=== PATIENT | male | born 1980 | race Caucasian/White ===

== ENCOUNTER 2024-07-21 09:44 | Outpatient (OUT) | payer SELFPAY ==
--- NOTE | 2024-07-21 09:46 | XR_ITS ---
The [address] [address] Patient Name: MAGDA POLANCO MRN: [id number] date: 1980 Sex: M Assigned Patient Location: [facility] Current Patient Location: Accession/Order Number: [id number] Exam Date: 07/21/2024 09:52 Report Date: 07/24/2024 07:34 At the request of: SWATHI FRANCO Procedure: XR foot RT min 3V PROCEDURE: XR foot RT min 3V HISTORY: Pain COMPARISON: XR foot right 09/04/2022 FINDINGS: BONES:Prior osteotomy and fusion of mid first metatarsal via dorsal plate and screws. Mechanical fusion of the talonavicular joints and prior posterior calcaneal osteotomy and fusion via 2 lag screws. SOFT TISSUES:No visible soft tissue swelling. EFFUSION:None visible. OTHER: Negative. XR/XR foot RT min 3V IMPRESSION: 1. Stable surgical changes without evidence of hardware failure or change in alignment. Electronically authenticated by: SJ MAHAN Date: 07/24/2024 07:34
== END 2024-07-21 09:45 | disposition home or self-care (01) ==
LOC: RAD 09:44
PROVIDERS: Visit Provider Podiatrist Foot & Ankle Surgery
DX: M79.671 Pain in right foot (principal)
CPT/HCPCS: 73630

== ENCOUNTER 2024-08-11 09:23 | Outpatient (OUT) | payer MEDICAID, SELFPAY ==
--- OUTSIDE RECORDS SUMMARY | 2024-08-11 09:35 | XMS_ITS | CCD ---
Author Organization [facility] Inform ion Partnership [facility] Care Team Providers Care Substation Inspector Name Role Phone SWATHI FRANCO Admitting Unavailable SWATHI FRANCO Attending Unavailable JIL JOHNSON Primary Care Unavailable [place], DR GUERRERO Holguin Consulting Unavailable SWATHI FRANCO Consulting Unavailable [facility] Primary Care Provider Unavailabl e [facility] ([facility] [place] Other Prim ashlie Care Provider [facility] ([facility]), OTHER Prim ashlie Care Unavailable [facility] ([facility]), OTHER Refe rring Unavailable [facility] Attending Unavailable SELF, SELF Referring Unavailable [facility] Attending Unavailable [facility] ([facility]), OTHER Refe rring Unavailable [facility] Attending Unavailable [facility] ([facility]), OTHER Refe rring Unavailable ATWAY, SAID A Admitting Unavailable ATWAY, SAID A Attending Unavailable Medications Current Medications Medication Drug Class(es) Dates Sig (Normalized) Sig (Original) 8 hr acetaminophen 650 mg extended release oral tablet (3 sources) Start: 07-07-2023 End: 07-12-2023 take 1 tablet by mouth every six hours as needed acetaminophen 650 MG Tab CR Take 1 tablet by mouth every 6 hours as needed for Mild Pain or Moderate Pain for up to 5 days. 20 tablet 0 07/07/2023 Active Start: 07-07-2023 End: 07-07-2023 take 1 tablet by mouth every six hours as needed Acetaminophen (TYLENOL) tablet 650 mg docusate sodium 100 mg oral capsule (2 sources) Start: 07-07-2023 take 1 capsule by mouth twice daily as needed for pain Docusate 100 MG capsule Take 1 capsule by mouth 2 times daily as needed. Take for the entire time you are taking any narcotic pain medication. 30 capsule 1 07/07/2023 Active doxycycline hyclate 100 mg oral capsule (1 source) Tetracycline-cl ass Drug Start: 07-07-2023 End: 07-21-2023 take 1 capsule by mouth twice daily doxycycline hyclate 100 MG capsule Take 1 capsule by mouth 2 times daily for 14 days. 28 capsule 0 07/07/2023 07/21/2023 Active oxyCODONE hydrochloride 5 mg oral tablet (3 sources) Opioid Agonist Start: 07-07-2023 End: 07-12-2023 take 1 tablet by mouth every six hours as needed oxyCODONE 5 MG tablet Indications: S/P foot surgery, right Take 1 tablet by mouth every 6 hours as needed for up to 5 days. 20 tablet 0 07/07/2023 Active Completed/Discontinued Medications Medication Drug Class(es) Dates Sig (Normalized) Sig (Original) calcium chloride 0.0014 meq/ml / potassium chloride 0.004 meq/ml / sodium chloride 0.103 meq/ml / sodium lactate 0.028 meq/ml injectable solution (1 source) Start: 3 End: 3 Lactated ringers IV solution ceFAZolin 2000 mg injection (2 sources) Cephalosporin Antibacterial Start: 3 End: 3 ceFAZolin (ANCEF) 2 g in dextrose 100 mL premix IVPB 1 ml haloperidol 5 mg/ml prefilled syringe (2 sources) Typical Antipsychotic Start: 3 End: 3 Haloperidol lactate (HALDOL) injection 1 mg 1 ml HYDROmorphone hydrochloride 1 mg/ml cartridge (2 sources) Opioid Agonist Start: 3 End: 3 HYDROmorphone (DILAUDID) injection 0.5 mg ibuprofen 200 mg oral tablet (1 source) Nonsteroidal Anti-inflammatory Drug Start: 3 End: 3 take 1 tablet by mouth every six hours as needed Ibuprofen (MOTRIN) tablet 600 mg labetalol hydrochloride 5 mg/ml injectable solution (1 source) beta-Adrenergic Kimmy Start: 3 End: 3 Labetalol (NORMODYNE) injection 5 mg 2 ml ondansetron 2 mg/ml injection (1 source) Serotonin-3 Receptor Antagonist Start: 3 End: 3 take 4 mg intravenously every four hours as needed Ondansetron 4mg/2ml (ZOFRAN) injection 4 mg prochlorperazine 5 mg/ml injectable solution (2 sources) Phenothiazine Start: 3 End: 3 take 5 mg intravenously every hour as needed Prochlorperazine (COMPAZINE) injection 5 mg Problems Problem Classification Problem Date Documented Date Episodic/Chronic Acquired foot deformities (4 sources) Toe joint rigid; Translations: [Hallux rigidus, right foot] Onset: 05-19-2023 06-19-2023 Chronic Acquired foot deformities (8 sources) Plantarflexion deformity of foot; Translations: [Other acquired deformities of unspecified foot] Onset: 05-19-2023 06-19-2023 Episodic Complication of device; implant or graft (6 sources) Pain; Translations: [Pain due to internal orthopedic prosthetic devices, implants and grafts, initial encounter] Onset: 07-28-2023 06-19-2023 Episodic Other connective tissue disease (4 sources) Pain in right foot; Translations: [PAIN IN RIGHT FOOT] Onset: 09-04-2022 Episodic Other injuries and conditions due to external causes (1 source) Foreign body in left ear; Translations: [Foreign body in left ear, initial encounter] Onset: 10-02-2022 Episodic Other nervous system disorders (2 sources) Compartment syndrome of lower leg 10-01-2022 Chronic Other skin disorders (2 sources) Foot callus; Translations: [Corns and callosities] 06-19-2023 Episodic Other skin disorders (2 sources) Corns and callosities; Translations: [Corns and callosities] Onset: 05-19-2023 Episodic Residual codes; unclassified (3 sources) History of operative procedure on foot; Translations: [Other specified postprocedural states] Onset: 07-29-2023 07-07-2023 Episodic Residual codes; unclassified (2 sources) Other specified postprocedural states; Translations: [Other specified postprocedural states] Onset: 07-28-2023 Episodic Skin and subcutaneous tissue infections (2 sources) Local infection of the skin and subcutaneous tissue, unspecified; Translations: [Local infection of the skin and subcutaneous tissue, unspecified] Onset: 07-28-2023 Episodic Superficial injury; contusion (5 sources) Foreign body of foot; Translations: [Superficial foreign body, right great toe, initial encounter] Onset: 07-28-2023 04-30-2023 Episodic Results Test Name Value Interpretation Reference Range Facil ity [facility] 10-21-2023 Prison Documents [id number] FF Normal [facility] CARDIAC RHYTHM (SCANNED)on [facility] 04-03-2023 Prison Documents [id number] 0CD:127 Normal [facility] Vital Signs Date Time Vital Sign Value Performing Clinician [place] 07-07-2023 13:01-0400 Diastolic blood pressure 86 mm[Hg] Said Atway DPM Work Phone: [facility] 07-07-2023 13:01-0400 Heart rate 72 /min Said Atway DPM Work Phone: [facility] 07-07-2023 13:01-0400 Respiratory rate 14 /min Said Atway DPM Work Phone: [facility] 07-07-2023 13:01-0400 SaO2% (BldA) [Mass fraction] 96 % Said Atway DPM Work Phone: [facility] 07-07-2023 13:01-0400 Systolic blood pressure 135 mm[Hg] Said Atway DPM Work Phone: [facility] 07-07-2023 12:15-0400 Body temperature 98.01 [degF] Said Atway DPM Work Phone: [facility] 07-07-2023 07:54-0400 Body height 177.8 cm Said Atway DPM Work Phone: [facility] 10-02-2022 15:40-0500 Body temperature 98.6 [degF] Ceasar MURRAY [facility] 10-02-2022 15:40-0500 Diastolic blood pressure 98 mm[Hg] Ceasar MURRAY [facility] 10-02-2022 15:40-0500 Heart rate 69 /min Ceasar MURRAY [facility] 10-02-2022 15:40-0500 Mean blood pressure 111 mm[Hg] Ceasar MURRAY [facility] 10-02-2022 15:40-0500 SaO2% (BldA) [Mass fraction] 97 % Ceasar MURRAY [facility] 10-02-2022 15:40-0500 Systolic blood pressure 136 mm[Hg] Ceasar MURRAY [facility] 10-01-2022 15:29-0500 Blood Pressure Location Ceasar MURRAY [facility] 10-01-2022 15:29-0500 Body temperature 98.42 [degF] Ceasar MURRAY [facility] 10-01-2022 15:29-0500 Diastolic blood pressure 80 mm[Hg] Ceasar MURRAY [facility] 10-01-2022 15:29-0500 Heart rate 90 /min Ceasar MURRAY [facility] 10-01-2022 15:29-0500 Respiratory rate 14 /min Ceasar MURRAY [facility] 10-01-2022 15:29-0500 SaO2% (BldA) [Mass fraction] 94 % Ceasar MURRAY [facility] 10-01-2022 15:29-0500 Systolic blood pressure 117 mm[Hg] Ceasar MURRAY [facility] Encounters Encounter Date Encounter Type Care Provider Facility Start: 07-28-2023 ambulatory [facility] ([facility]) Facility:[facility] Start: 07-28-2023 End: 07-28-2023 Postop follow up visit related to original px [facility] [place] Work Phone: [facility] Comment on above: S/P foot surgery, ri ght (Primary Dx); Painful orthopaedic hardware; Foreign body of great toe of right foot with infection, initial encounter Start: 07-07-2023 End: 07-07-2023 ambulatory [facility] ([facility]) Facility:[facility] Start: 07-07-2023 End: 07-07-2023 Subsequent hospital visit by physician Saritha García DPM Work Phone: [facility] Comment on above: Equinus deformity of foot Start: 05-19-2023 ambulatory SELF SELF Facility:[facility] Start: 05-19-2023 End: 06-24-2023 Office outpatient new 45 minutes [facility] [place] Work Phone: [facility] Comment on above: Equinus deformity of foot (Primary Dx); Cavovarus deformity of foot, acquired, right; Callus of foot; Hallux rigidus of right foot; Painful orthopaedic hardware Start: 04-30-2023 End: 04-30-2023 Office outpatient new 30 minutes [facility] [place] Work Phone: [facility] Comment on above: Foreign body of grea t toe of right foot with infection, initial encounter (Primary Dx) Start: 04-30-2023 ambulatory [facility] ([facility]) Facility:[facility] Start: 10-02-2022 End: 10-02-2022 Off-Site Ceasar MURRAY [facility] Start: 10-01-2022 End: 10-01-2022 Off-Site Ceasar MURRAY [facility] Start: 09-04-2022 End: 09-05-2022 ambulatory SWATHI FRANCO Facility:[facility] Procedures Date Procedure Procedure Detail Performing Clinician Start: 07-07-2023 CARDIAC RHYTHM Other Ot her Plan of Treatment Date Care Activity Detail Author Start: 07-07-2023 End: 07-07-2023 Debridement bone muscle &/fascia 20 sq cm/< DEBRIDEMENT BONE Equinus deformity of foot Cavovarus deformity of foot, acquired, right Callus of foot Hallux rigidus of right foot Painful orthopaedic hardware 07/07/2023 10:11 AM EDT [facility] Start: 07-07-2023 End: 07-07-2023 Removal implant superficial separate procedure REMOVAL HARDWARE Equinus deformity of foot Cavovarus deformity of foot, acquired, right Callus of foot Hallux rigidus of right foot Painful orthopaedic hardware 07/07/2023 10:11 AM EDT [facility] Start: 05-09-2023 Influenza vaccination INFLUENZA VACC INE (#1) [facility] Start: 2019 Lipid panel LIPID SCREENING [facility] Start: 1998 Third diphtheria, tetanus and acellular pertussis (DTaP) vaccination TDAP (ADULT) [facility] Start: 1994 HIV screening HIV SCREENING DISCUSSI ON [facility] Start: 02-29-1980 COVID-19 VACCINE (#1) COVID-19 VACCI NE (#1) [facility] Start: 1979 Hepatitis C screening HEPATITI S C VIRUS SCREENING [facility] Start: 1979 Tetanus vaccination TETANUS [facility] Debridement bone mus brayan &/fascia 20 sq cm/< DEBRIDEMENT BONE Equinus deformity of foot Cavovarus deformity of foot, acquired, right Callus of foot Hallux rigidus of right foot Painful orthopaedic hardware [facility] REMOVAL HARDWARE REMOVAL HARDWAR E Equinus deformity of foot Cavovarus deformity of foot, acquired, right Callus of foot Hallux rigidus of right foot Painful orthopaedic hardware [facility] End: 07-07-2023 RF Less than 1 hour [facility] Work Phone: Comment on above: One Time for 1 Occur rences starting 07/07/2023 until 07/07/2023 Immunizations Immunization Date Immunization Notes Care Provider Jules lao 10-01-2019 hepatitis A vaccine, adult dosage Ceasar MURRAY [facility] Payers Date Payer Category Payer Unknown [facility] [id number] 2023-Present [address] [place] [address] [id number] 2023 Unknown [id number] 1979 Unknown [id number] 1979 Unknown [id number] 1979 Unknown [id number] 1979 Unknown [id number] 1959 Unknown [id number] Social History Date Type Detail Facility Start: 10-01-2022 Tobacco smoking status Heavy t obacco smoker (finding) [facility] Sex Assigned At Sex [facility] Tobacco smoking stat [facility] Tobacco smoking consumption unknown [facility] Start: 12-23-2014 End: 07-28-2023 History of Social function [facility] Start: 12-23-2014 End: 07-28-2023 Tobacco use panel [facility] Start: 1980 Sex Assigned At Not on file [facility] Start: 07-07-2023 [facility] End: 08-12-2022 History of tobacco use Current smoker [facility] End: 08-12-2022 History of tobacco use Cigarette Smoker [facility] Start: 07-07-2023 Tobacco use and exposure Former smokeless tobacco user [facility] End: 01-05-2020 History of tobacco use User of smokeless tobacco [facility] Start: 07-07-2023 End: 07-28-2023 Alcohol intake Ex-drinker (finding) [facility] Start: 07-07-2023 Education 17 [facility] Start: 07-07-2023 Alcohol Comment etoh abuse [facility] Functional Status Date Assessment Result Facility 10-01-2022 Functional Status N/A [facility] Clinical Notes 09-04-2022 to 07-28-2023 Kay Nice MD - 07/28/2023 9:45 AM Baldemar Mccormick RN - 07/07/2023 11:19 AM Marco Antonio Mccormick RN - 07/07/2023 11:19 AM EDTSmarcela García DPM - 05/19/2023 9:00 AM EDT Note Date & Type Note Facility 07-28-2023 History of Presen t illness Narrative Chief Complaint Patient presents with Post Op Visit Right great toenail removal per podiatry This telehealth visit is a real time audio/visual communication. During the scheduling process, this patient has verbally consented to the submission of Telehealth visits and the patient is aware of the risks, benefits, and possible coinsurance/copay costs. This visit is being conducted by real time telemedicine due to the current COVID19 pandemic and efforts to reduce in-clinic visits, where possible, to reduce the overall risk of the spread of the illness. Time to complete visit: 15+ Minutes. and format: video Wily Polanco is a 42 y.o. year old male who is here for follow up on surgery as below. Wily Polanco c/o pain is improved and pain is controlled with pain medication HPI: 42 y.o. male status post above procedure Overall the patient is doing well at this time. his pain is well controlled with oral pain medications. he is ambulating weight bearing status: FWB with the assistance of:Mobility : post op shoe PSxH: Past Surgical History: Procedure Laterality Date REMOVAL HARDWARE Right 07/07/2023 Laterality: Right; Surgeon: Said Manjula García DPM; Location: [facility] DEBRIDEMENT BONE Right 07/07/2023 Laterality: Right; Surgeon: Said Manjula García DPM; Location: [facility] FOOT SURGERY Right 2020 LEG SURGERY Right 2000 TONSILLECTOMY 1985 WISDOM TEETH EXTRACTION Bilateral PMH: Past Medical History: Diagnosis Date Essential hypertension, benign Hyperlipidemia Meds: Current Outpatient Medications: acetaminophen 650 MG Tab CR, Take 1 tablet by mouth every 6 hours as needed for Mild Pain or Moderate Pain for up to 5 days., Disp: 20 tablet, Rfl: 0 Docusate 100 MG capsule, Take 1 capsule by mouth 2 times daily as needed. Take for the entire time you are taking any narcotic pain medication., Disp: 30 capsule, Rfl: 1 oxyCODONE 5 MG tablet, Take 1 tablet by mouth every 6 hours as needed for up to 5 days., Disp: 20 tablet, Rfl: 0 Allergies: Not on File Social History: Social History Socioeconomic History Marital status: Single Spouse name: Not on file Number of children: 0 Years of education: Not on file Highest education level: Bachelor's degree (e.g., BA, AB, BS) Occupational History Occupation: [employer] Tobacco Use Smoking status: Former Packs/day: .5 Types: Cigarettes Quit date: 08/12/2022 Years since quittin.9 Smokeless tobacco: Former Quit date: 01/05/2020 Vaping Use Vaping Use: Never used Substance and Sexual Activity Alcohol use: Not Currently Comment: etoh abuse Drug use: Not Currently Types: Methamphetamines, Cocaine Sexual activity: Not Currently Other Topics Concern Not on file Social History Narrative Not on file Social Determinants of Health Financial Resource Strain: Not on file Food Insecurity: Not on file Transportation Needs: Not on file Physical Activity: Not on file Stress: Not on file Social Connections: Not on file Intimate Partner Violence: Not on file Housing Stability: Not on file ROS: @ROS@ Physical exam: A./O. x3 in no apparent distress. Positioned comfortably in in the institutional clinic space The incision is clean, dry, intact, . and nail removal area is stable There were complaints: wound drainage and minimal, some swelling associated There were no complaints: wound dehiscence, necrotic tissue, and locking/ catching ROM is: not tested-- prior fusion Vitals: There were no vitals filed for this visit. There is no height or weight on file to calculate BMI. Labs: CBC with Diff and Platelets, ESR, and CRP, please do in 2 weeks and send results to Dr. Nice at [facility] Orthopaedics. X-ray/ imaging: available on [facility] ASSESSMENT AND PLAN This is a 42 y.o. male status post overall doing well. S/p right great toeanil removal . He is having some swelling and drainage. He has completed 2 weeks doxycycline. Feels it is getting better, not having pain. Wily was seen today for post op visit. Diagnoses and all orders for this visit: S/P foot surgery, right Painful orthopaedic hardware Foreign body of great toe of right foot with infection, initial encounter Plan is for weight bearing status: FWB Weight bearing for ongoing . Wean into regular shoe as able. Follow -up: [facility] , in 4-6 weeks for: recheck, due to ongoing drainage. Imaging: Imaging plan --Please have: No new imaging is needed at this time. Surgical Plan: Surgery Plan : No surgery is currently anticipated. and patient is postop Labs: no labs needed at this time Please send routine record requests to [facility] Medical Information Management (MIRIAM) at [phone]. Please ALSO send any Urgent or alert level results to: attention [facility] OR[facility] via , as well as to [facility] as above. Rehab exercises will beper POST OP instructions per podiatry. Already reviewed these, per patient. Over 10 minutes was spent today in the care of this patient, including visit, exam, review of labs, xrays, history, and other documentation as appropriate. Kay Nice MD Clinical Him Coder [facility] Department [place] [address] Office: [phone] documented in this encounter [facility] 07-07-2023 Hospital Discharg e instructions Keaton Church DPM - 07/07/2023 11:54 AM EDT Post Operative Summary Elevate right leg on x2 pillows above level of heart Ice: Ice over incision site or behind knee for 20 min on/off Weight Bearing Status - Partial weightbearing to your right leg/foot using heel and in a post-op shoe Antibiotics - Doxy x2 weeks - take as prescribed Blood Clot Prevention - Up and out of bed as much as possible Pain Control - You have been prescribed a narcotic pain medication. Please take as prescribed. Do not take more than prescribed. Wound Care Instructions - Keep dressing clean, dry intact. Call the number below under Follow up appointment if the dressing gets wet or damaged requiring attention before attempting to remove it. Reinforce as needed with PEARL or additional bandage. Diet- Advance diet slowly as tolerated starting with clear fluids Follow Up Appointment - Ortho snf clinic for dressing changes, wound assessment and 2-3 week follow up for suture removal. Notify Your Doctor or Nurse if you have any of the following: Bleeding or bruising If you have bleeding, apply pressure to the site and hold the pressure firmly for 5 minutes. If the bleeding continues, apply pressure again and call 911. If the bleeding stopped, call your doctor to report it. Call your doctor or nurse right away if you have increased bleeding from your site. Deep Vein Thrombosis Symptoms Call your doctor or nurse right away if you have any signs of blood clots such as -Tender, swollen or reddened areas anywhere in your leg. -Numbness or tingling in your lower leg or calf, or at the top of your leg or groin -Skin on you leg looks pale or blue or feels cold to touch -Chest pain or have trouble breathing -Fever or chills Fever, Chills, or Flu Call your doctor or nurse if you have a temperature greater than 100.5 degrees F and/or chills. Nausea and Vomiting Call your doctor or nurse if you have nausea and vomiting that continues more than 24 hours, will not let you keep medicine down and will not let you keep fluids down Wound Infection Symptoms Call your doctor or nurse right away if you have signs of infection at you wound such as: -More pain around the wound -Change in the color and odor of drainage -The skin around the wound feels warm or has red streaks -The wound separates or opens up -You have a temperature greater than 100.5 Symptom Management: Take Your Medicines Take your prescribed medicines as ordered to avoid a set back in your treatment plan. Many of your medicines will cause undesirable side effects if stopped suddenly. Anesthesia Recovery after General, Monitored, or Regional Anesthesia You should rest for [address], drink alcoholic beverages or make any important decisions during this period of time. General anesthesia may cause a sore throat, jaw discomfort, or muscle aches that can last for 1 to 2 days. After Local Anesthesia You should rest and limit your activity for the rest of the day. For Nausea and Vomiting Take your medicine to reduce nausea regularly. Call your doctor if you are not able to eat or drink for more than 2 days. For Leg Swelling Elevate legs above the level of your heart. Do not cross your legs. Wear support hose. Limit time sitting. Activity: Please follow these instructions: Weight Bearing Restrictions: To promote healing or prevent injury you should restrict the amount of weight you place on your right leg and foot. Your activities should be limited, as instructed by your doctor or therapist to partial weight bearing utilizing your heel. This means you are not to put your body weight to the affected area. Diet: Your doctor has recommended that you follow these diet instructions at home. Refer to the patient education materials you received during your hospital stay. If you would like more nutrition counseling, ask your doctor about making an appointment with an outpatient dietitian. No restrictions-usual diet -You are to resume your usual diet at home. Miscellaneous Education Home Medicines-New Start taking the medicines that your doctor prescribed for you after your surgery. Your medicines were changed during your hospital stay. Review your list of medicines and only take those medicines on the list. Do not take any other medicines unless you first check with your doctor. Home Medicines-Resume Resume the medicines that you were taking at home before your hospital stay. Pain Medication A prescription for pain medicine will be sent home with you. Do not drive while taking prescription pain medicine. Eat when taking pain medicines to avoid nausea. Watch for constipation. Eat plenty of fruits, vegetables, juices, and drink 6 to 8 glasses of water each day. Take an over the counter stool softeners twice daily while taking the narcotic pain medicine to prevent constipation. Take a stool softener twice a day as long as you remain on pain medicine. If you do not have a bowel movement within 5 days of your surgery, please take milk of magnesia. If you do not have a bowel movement within 12 hours of milk of magnesia, call the office. Additional Contacts: Evening and Weekend Contacts If you have questions or concerns during evening, weekend, or holiday hours, please call: -[facility] press operator printing at [phone]. -[facility] press operator printing at [phone] Ask the press operator printing to page the on-call doctor for Podiatry, the service that was responsible for your care while you were in the hospital. If you having an emergency, call 911. documented in this encounter [facility] 07-07-2023 Nurse Surgical operation note Patient arrived to [facility] PACU @1140 1159: paged for ASU orders Dr Hannon called for sign out @1200, VO ok to discontinue tele and pulse ox for phase 2. Report called to Brittny RN @1213 Patient left PACU via cart @1216 [facility] 07-07-2023 Nurse Note Patient arrived to [facility] PACU @1140 1159: paged for ASU orders Dr Hannon called for sign out @1200, VO ok to discontinue tele and pulse ox for phase 2. Report called to Brittny RN @1213 Patient left PACU via cart @1216 Report called to PACKING SHED SUPERVISORALEXANDRIA Lycnh documented in this encounter [facility] 07-07-2023 Nurse Surgical operation note Report called to PACKING SHED SUPERVISORALEXANDRIA Lynch [facility] 05-19-2023 History of Presen t illness Narrative No chief complaint on file. Patient verbally consents to the submissions of a Telehealth visit, patient is aware of the risks, benefits, and possible coinsurance/copay cost. Johny Polanco is a 42 y.o. male presenting with complaint of previous right foot surgery which has persisted with continued pain. Relates being limited in ability to ambulate and previous surgery for the rotated foot deformity. Would like to review options for conservative vs. Surgical care. Did well originally with surgery and now continued deformity and ulcer. Pt. Denies nausea, vomiting, fever, chills and shortness of breath. No past medical history on file. No past surgical history on file. Social History Occupational History Not on file Tobacco Use Smoking status: Not on file Smokeless tobacco: Not on file Substance and Sexual Activity Alcohol use: Not on file Drug use: Not on file Sexual activity: Not on file No family history on file. No current outpatient medications on file. Not on File Review of Systems: Constitutional: Negative. Negative for fever, chills, weight loss, weight gain and malaise/fatigue. Skin: Negative. Negative for rash, itching and skin lesions. Musculoskeletal: Negative. Negative for myalgias, back pain, joint pain and falls. Neurological: Negative. Negative for dizziness and seizures. Physical Exam General:Johny Polanco is seated comfortably in the examination room. He is alert and oriented to time and place. In no acute distress. Mood and affect are normal and appropriate to situation.Johny presents well developed, well nourished male. Johny presents NWB with surgical shoe Seated at [facility]. There were no vitals taken for this visit. Skin: Normal. No abrasions, lacerations, ecchymosis noted. intact skin without open area or infection contracture with callus/ulcer incisions healed. Musculoskeletal:all joints tested WNL and muscle strength 5/5 for all groups tested. Varus heel with posterior lateral wound excess loading. Neurological:protective sensation grossly reduced. Vascular: temperature warm to warm proximal to distal and DP and PT pulses +2 bilateral. Imaging Studies: Reviewed. Diagnoses and all orders for this visit: Equinus deformity of foot Cavovarus deformity of foot, acquired, right Callus of foot Hallux rigidus of right foot Painful orthopaedic hardware Plan: On today's visit I have reviewed with the patient the diagnoses and treatment options for his lower extremity pathology. I have explained to him conservative treatment options. All of his questions were answered regarding this diagnosis. Concern with continued varus foot and lateral loading of the forefoot and midfoot with concern for hardware pain and deformity. Consider surgical intervention and hardware removal and pain. He is well versed in the signs of infection including nausea, vomiting, fever, chills and shortness of breath. As well he is aware that if he sees redness streaking up his foot or leg drainage or increased pain he should go to the emergency room immediately as this is a sign of severe infection. documented in this encounter [facility] 05-19-2023 History of Presen t illness Narrative No chief complaint on file. Patient verbally consents to the submissions of a Telehealth visit, patient is aware of the risks, benefits, and possible coinsurance/copay cost. Johny Polanco is a 42 y.o. male presenting with complaint of previous right foot surgery which has persisted with continued pain. Relates being limited in ability to ambulate and previous surgery for the rotated foot deformity. Would like to review options for conservative vs. Surgical care. Did well originally with surgery and now continued deformity and ulcer. Pt. Denies nausea, vomiting, fever, chills and shortness of breath. No past medical history on file. No past surgical history on file. Social History Occupational History Not on file Tobacco Use Smoking status: Not on file Smokeless tobacco: Not on file Substance and Sexual Activity Alcohol use: Not on file Drug use: Not on file Sexual activity: Not on file No family history on file. No current outpatient medications on file. Not on File Review of Systems: Constitutional: Negative. Negative for fever, chills, weight loss, weight gain and malaise/fatigue. Skin: Negative. Negative for rash, itching and skin lesions. Musculoskeletal: Negative. Negative for myalgias, back pain, joint pain and falls. Neurological: Negative. Negative for dizziness and seizures. Physical Exam General:Johny Polanco is seated comfortably in the examination room. He is alert and oriented to time and place. In no acute distress. Mood and affect are normal and appropriate to situation.Johny presents well developed, well nourished male. Johny presents NWB with surgical shoe Seated at [facility]. There were no vitals taken for this visit. Skin: Normal. No abrasions, lacerations, ecchymosis noted. intact skin without open area or infection contracture with callus/ulcer incisions healed. Musculoskeletal:all joints tested WNL and muscle strength 5/5 for all groups tested. Varus heel with posterior lateral wound excess loading. Neurological:protective sensation grossly reduced. Vascular: temperature warm to warm proximal to distal and DP and PT pulses +2 bilateral. Imaging Studies: Reviewed. Diagnoses and all orders for this visit: Equinus deformity of foot Cavovarus deformity of foot, acquired, right Callus of foot Hallux rigidus of right foot Painful orthopaedic hardware Plan: On today's visit I have reviewed with the patient the diagnoses and treatment options for his lower extremity pathology. I have explained to him conservative treatment options. All of his questions were answered regarding this diagnosis. Concern with continued varus foot and lateral loading of the forefoot and midfoot with concern for hardware pain and deformity. Consider surgical intervention and hardware removal and pain. He is well versed in the signs of infection including nausea, vomiting, fever, chills and shortness of breath. As well he is aware that if he sees redness streaking up his foot or leg drainage or increased pain he should go to the emergency room immediately as this is a sign of severe infection. documented in this encounter [facility] 05-19-2023 Miscellaneous Notes Addended by: SARITHA GARCÍA on: 06/26/2023 04:14 PM Modules accepted: Orders documented in this encounter [facility] 05-19-2023 Note Addended by: SARITHA GARCÍA on: 06/26/2023 04:14 PM Modules accepted: Orders [facility] 04-30-2023 History of Presen t illness Narrative The patient telehealth exam . Patient had extensive foot surgery probably 15-20 years ago with recent drainage from the dorsal great toe area probably secondary to internal fixation hardware. He is had 3 bouts of antibiotics without any success and no cultures were taken by history. No culture results available in his record. He currently ambulates without discomfort and he is in good health age 42 with blood pressure 129/81, pulse 96 oxygen 98% respirations 16. Height is 5 ft 10 weight 211 and negative for hepatitis and HIV. Plan: Direct referral to podiatry as a consult Last antibiotic was 6 weeks ago so I am recommending an up to date culture of each wound site to be culture separately for anaerobic and aerobic bacteria to be done immediately. documented in this encounter [facility] 09-04-2022 Note PROCEDURE: XR FOOT R T MIN 3 VIEWS COMPARISON: 08/29/2020 HISTORY: Pain in right foot FINDINGS: BONES:Stable subtalar fusion with 2 cannulated lag screws. Fixation hardware dorsal first metatarsal consisting of a plate and screws. Fixation of the first interphalangeal joint with 2 screws. Lucency surrounding the screw suggests an element of loosening SOFT TISSUES:Negative. No visible soft tissue swelling. EFFUSION:None visible. OTHER: Negative. 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, acquired, right Callus of foot Corns and callosities Hallux rigidus of right foot Hallux rigidus Painful orthopaedic hardware [facility] Diagnosis Equinus deformity of foot- Primary 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, acquired, right Callus of foot Corns and callosities Hallux rigidus of right foot Hallux rigidus Painful orthopaedic hardware [facility] S[facility]P [facility], right- Primary [facility] Diagnosis S/P foot surgery, right- Primary Painful orthopaedic hardware Foreign body of great toe of right foot with infection, initial encounter [facility] No data available for this section [facility] [employer] Progress note No data available for this section [facility] [employer] Summary Purpose Family History No Family History Records FoundNo Family History Records FoundNo Family History Records Found Advance Directives No Advanced Directives Records FoundNo Advanced Directives Records FoundNo Advanced Directives Records Found Additional Source Comments (unrecognized sect ion and content) No Status Records FoundNo Status Records FoundNo Status Records Found INFORMATION SOURCE (unrecogn ized section and content) DATE CREATED AUTHOR 09/07/2022 [facility] DATE CREATED AUTHOR AUTHOR'S ORGANIZ ATION 08/01/2023 [facility] DATE CREATED AUTHOR AUTHOR'S ORGANIZ ATION 10/23/2023 [facility] Reason for Visit (unrecogniz ed section and content) Reason Comments Foot Swelling Chronic drainage Reason Comments Wound Check Specialty Diagnoses / Procedures Referred By Rishi t Referred To Contact Diagnoses Equinus deformity of foot Cavovarus deformity of foot, acquired, right Callus of foot Hallux rigidus of right foot Painful orthopaedic hardware Equinus deformity of foot [M21.6X9] Cavovarus deformity of foot, acquired, right [M21.6X1] Callus of foot [L84] Hallux rigidus of right foot [M20.21] Painful orthopaedic hardware [T84.84XA] Procedures SC REMOVAL SUPERFICIAL IMPLANT SC DEBRIDEMENT, SKIN, SUB-Q TISSUE,MUSCLE,BONE REMOVAL HARDWARE DEBRIDEMENT BONE Atway, Saritha Fair DPM [address] [place] [address] [facility] [address] [place] [address] Referral ID Status Reason Start Date Expiration Date Visits Re quested Visits Authorized [id number] 1 1 Reason Comments Post Op Visit Right great toenail removal per podiatry Continuous Active and Recently Administ ered Medications (unrecognized section and content) Medication Order 07/05/2023 07/06/2023 07/07/2023 Lactated ringers IV solution Intravenous, at 50 mL/hr, CONTINUOUS, Starting on Fri07/07/23 at 1215, Until Fri07/07/23 at 1520 1215 (Canceled Entry - Provider: System Discharge - Comment: Automatically canceled at discontinue of medication order) PRN Medication Order 07/05/2023 07/06/2023 07/07/2023 Acetaminophen (TYLENOL) tablet 650 mg 650 mg, Oral, EVERY 6 HOURS NEEDED, Starting on Fri07/07/23 at 1210, Until Fri07/07/23 at 1520, Mild Pain, Maximum dose of acetaminophen is 4000 mg from all sources in 24 hours., Post-op/Post-Proc bacitracin ointment (CANCELED) NEEDED, Starting on Fri07/07/23 at 1124, Until Fri07/07/23 at 1139, Intra-op/Intra-Proc 1124 (Given - Provid er: Saritha García DPM - Comment: op site) ceFAZolin (ANCEF) 2 g in dextrose 100 mL premix IVPB 2 g, Intravenous, Administer over 30 Minutes, REMANUFACTURING TECHNICIAN TO PROCEDURE, 1 dose, Starting on Fri07/07/23 at 1210, Until Fri07/07/23 at 1520, preop ceFAZolin (ANCEF) 2 g in dextrose 100 mL premix IVPB 2 g, Intravenous, Administer over 30 Minutes, REMANUFACTURING TECHNICIAN TO PROCEDURE, 1 dose, Starting on Fri07/07/23 at 1034, Until Fri07/07/23 at 1520, preop Haloperidol lactate (HALDOL) injection 1 mg 1 mg, Intravenous, ONCE NEEDED, 1 dose, Starting on Fri07/07/23 at 1118, Until Fri07/07/23 at 1520, Refractory Nausea/vomiting, Use if patient still experiencing nausea/vomiting after 1st and 2nd line medications. Do not administer within 6 hours of intra-operative dose., Recovery Haloperidol lactate (HALDOL) injection 1 mg 1 mg, Intravenous, ONCE NEEDED, 1 dose, Starting on Fri07/07/23 at 1131, Until Fri07/07/23 at 1520, Refractory Nausea/vomiting, Use if patient still experiencing nausea/vomiting after 1st and 2nd line medications. Do not administer within 6 hours of intra-operative dose., Recovery HYDROmorphone (DILAUDID) injection 0.5 mg 0.5 mg, Intravenous, EVERY 10 MINUTES NEEDED, 8 doses, Starting on Fri07/07/23 at 1118, Until Fri07/07/23 at 1520, Moderate Pain, Severe Pain, May give a total of 4mg in PACU., Recovery HYDROmorphone (DILAUDID) injection 0.5 mg 0.5 mg, Intravenous, EVERY 10 MINUTES NEEDED, 8 doses, Starting on Fri07/07/23 at 1131, Until Fri07/07/23 at 1520, Moderate Pain, Severe Pain, May give a total of 4mg in PACU., Recovery Ibuprofen (MOTRIN) tablet 600 mg 600 mg, Oral, EVERY 6 HOURS NEEDED, Starting on Fri07/07/23 at 1210, Until Fri07/07/23 at 1520, Mild Pain, Give with food, Post-op/Post-Proc Labetalol (NORMODYNE) injection 5 mg 5 mg, Intravenous, EVERY 15 MINUTES NEEDED, Starting on Fri07/07/23 at 1118, Until Fri07/07/23 at 1520, FIRST line HTN. , For SBP > 180 Hold if HR < 60 and give SECOND line agent. May give a total of 20 mg while in PACU. If blood pressure uncontrolled after 20mg of labetalol administered, use second line agent or notify MD. For vials: labetalol should be treated as a SINGLE USE VIAL. Discard remaining contents after one use., Recovery Lidocaine (XYLOCAINE) 10 mg/mL injection (CANCELED) NEEDED, Starting on Fri07/07/23 at 1124, Until Fri07/07/23 at 1139, Intra-op/Intra-Proc 1124 (Given - Provid er: Saritha García DPM - Comment: op site) Ondansetron 4mg/2ml (ZOFRAN) injection 4 mg 4 mg, Intravenous, EVERY 4 HOURS NEEDED, Starting on Fri07/07/23 at 1210, Until Fri07/07/23 at 1520, Nausea / Vomiting, 1st line, Post-op/Post-Proc oxyCODONE (ROXICODONE) tablet 5 mg 5 mg, Oral, EVERY 6 HOURS NEEDED, Starting on Fri07/07/23 at 1210, Until Fri07/07/23 at 1520, Severe Pain, Post-op/Post-Proc 1236 (Given - Provid er: Brittny Borrego RN) Prochlorperazine (COMPAZINE) injection 5 mg 5 mg, Intravenous, EVERY 1 HOUR NEEDED, 2 doses, Starting on Fri07/07/23 at 1118, Until Fri07/07/23 at 1520, Nausea / Vomiting, FIRST Line antiemetic, Do not administer within 6 hours of intra-operative dose. For IV route: dilute dose with 10mL normal saline and give by slow IV push at a rate of 5mg/min. Maximum of 40mg/day., Recovery Prochlorperazine (COMPAZINE) injection 5 mg 5 mg, Intravenous, EVERY 1 HOUR NEEDED, 2 doses, Starting on Fri07/07/23 at 1131, Until Fri07/07/23 at 1520, Nausea / Vomiting, FIRST Line antiemetic, Do not administer within 6 hours of intra-operative dose. For IV route: dilute dose with 10mL normal saline and give by slow IV push at a rate of 5mg/min. Maximum of 40mg/day., Recovery Care Teams (unrecognized sec tion and content) Substation Inspector Relationship Specialty Start Date End Date [facility] ([facility] Other [address] [place] [address] [facility] 07/04/23 FOR RECORDS PERTAINING TO PATIENTS WHO ARE OR HAVE BEEN ENROLLED IN A CHEMICAL DEPENDENCY/SUBSTANCEABUSE PROGRAM, SOME INFORMATION MAY BE OMITTED. This clinical summary was aggregated from multiple sources. Caution should be exercised in using it in the provision of clinical care. This summary normalizes information from multiple sources, and as a consequence, information in this document may materially change the coding, format and clinical context of patient data. In addition, data may be omitted in some cases. CLINICAL DECISIONS SHOULD BE BASED ON THE PRIMARY CLINICAL RECORDS. [facility]. provides no warranty or guarantee of the accuracy or completeness of information in this document.
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
== END 2024-08-11 09:24 | disposition home or self-care (01) ==
LOC: PM 09:26
PROVIDERS: Visit Provider Nurse Practitioner
DX: M79.671 Pain in right foot (principal); G90.521 Complex regional pain syndrome I of right lower limb
CPT/HCPCS: G0463

== ENCOUNTER 2024-11-10 09:07 | Outpatient (OUT) | payer MEDICAID, SELFPAY ==
--- NOTE | 2024-11-10 09:13 | XR_ITS ---
The [address] [address] Patient Name: MAGDA POLANCO MRN: [id number] date: 1980 Sex: M Assigned Patient Location: [facility] Current Patient Location: [facility] Accession/Order Number: [id number] Exam Date: 11/10/2024 23:00 Report Date: 11/10/2024 23:02 At the request of: SWATHI FRANCO DPM Procedure: XR foot RT min 3V RIGHT FOOT - 3 views CLINICAL HISTORY: Right Foot Pain COMPARISON: Right foot 07/21/2024 FINDINGS: Hardware fixation involving the subtalar joint without evidence of hardware complication. Hardware is seen involving the first metatarsal without evidence of hardware complication. No focal soft tissue abnormality is seen. Questionable bony fusion involving the IP joint of the first digit. No bony erosions. XR/XR foot RT min 3V IMPRESSION: NO HARDWARE COMPLICATION. NO ACUTE BONY PROCESS. Impression dictated by: Blaise Flores Jr., D.O.11/10/2024 11:02 PM Dictation Location: [employer] Electronically authenticated by: [id number] Y Date: 11/10/2024 23:02
== END 2024-11-10 09:08 | disposition home or self-care (01) ==
LOC: RAD 09:07
PROVIDERS: Visit Provider Podiatrist Foot & Ankle Surgery
DX: M79.671 Pain in right foot (principal); Z98.890 Other specified postprocedural states
CPT/HCPCS: 73630

== ENCOUNTER 2024-12-01 08:05 | Outpatient (OUT) | payer MEDICAID, SELFPAY ==
--- OUTSIDE RECORDS SUMMARY | 2024-12-01 08:25 | XMS_ITS | CCD ---
Author Organization [facility] Care Team Providers Care Senior Tax Accountant Name Role Phone SWATHI CRUZ Admitting Unavailable SWATHI CRUZ Attending Unavailable JIL JOHNSON Primary Care Unavailable WISHRAM, DR GUERRERO Holguin Consulting Unavailable SWATHI CRUZ Consulting Unavailable Unavailable Primary Care Provider Unavailabl e [facility] ([facility] Other Prim ashlie Care Provider [facility] ([facility] OTHER Prim ashlie Care Unavailable [facility] ([facility] OTHER Refe rring Unavailable [facility] Attending Unavailable SELF, SELF Referring Unavailable [facility] Attending Unavailable [facility] ([facility] OTHER Refe rring Unavailable [facility] Attending Unavailable [facility] ([facility] OTHER Refe rring Unavailable ATWAY, SAID A Admitting Unavailable ATWAY, SAID A Attending Unavailable Services, [facility] Primary Care Provider Margie Flores MD Primary Care Provider MAXIMILIANO ESPINOZA Attending Unavailable SERVICES, [facility] Primary Care Unava ilable LUCY DELANEY Admitting Unavailable LUCY DELANEY Attending Unavailable LUCY DELANEY Referring Unavailable SERVICES, [facility] Primary Care Unava ilable ADAM SAAVEDRA Attending Unavailable ADAM SAAVEDRA Referring Unavailable ADAM SAAVEDRA Referring Unavailable MARIOLA SALAZAR Attending Unavailable MARGIE FLORES Referring Unavailable MARIOLA SALAZAR Attending Unavailable Medications Current Medications Medication Drug [...] as needed Acetaminophen (TYLENOL) tablet 650 mg cream base no.31, bulk, (TRANSDERMAL PAIN BASE) cream (2 sources) cream base no.31 , bulk, (TRANSDERMAL PAIN BASE) cream Apply 1 application. topically in the morning and at bedtime. Active docusate sodium 100 mg oral capsule (2 sources) Start: 07-07-20 take 1 capsule by mouth twice daily as needed for pain Docusate 100 MG capsule Take 1 capsule by mouth 2 times daily as needed. Take for the entire time you are taking any narcotic pain medication. 30 capsule 1 07/07/2023 Active doxycycline hyclate 100 mg oral capsule (1 source) Tetracycline-class Drug Start: 07-07-20 End: 07-21-20 23 take 1 capsule by mouth twice daily doxycycline hyclate 100 MG capsule Take 1 capsule by mouth 2 times daily for 14 days. 28 capsule 0 07/07/2023 07/21/2023 Active ferrous sulfate (2 sources) take 1 tablet by mouth at bedtime Ferrous Sulfate (IRON PO) Take 1 tablet by mouth at bedtime Active hydrOXYzine pamoate 50 mg oral capsule (2 sources) Antihistamine Start: 03-10-20 24 hydrOXYzine pamoate (Vistaril) 50 MG capsule 03/10/2024 Active Ketoprofen (2 sources) Nonsteroidal Anti-inflammatory Drug Start: 10-28-19 25 Ketoprofen powder 10/28/2024 Active Multiple Vitamin (MULTIVITAMIN ADULT PO) (2 sources) Multiple Vitamin (MULTIVITAMIN ADULT PO) Take by mouth Daily Active nwhcknmk-pkfa-KT-calc ium &mins (THERAGRAN-M) 9 mg iron-400 mcg tablet (2 sources) keeapqyk-moco-CA -eloy cium &mins (THERAGRAN-M) 9 mg iron-400 mcg tablet Take 1 tablet by mouth nightly. Active MULTIVITAMIN ORAL (2 sources) MULTIVITAMIN ORA L Take by mouth daily. Take 1 gummy by mouth daily Active oxyCODONE hydrochloride 5 mg oral tablet (3 sources) Opioid Agonist Start: 07-07-20 End: 07-12-20 take 1 tablet by mouth every six hours as needed oxyCODONE 5 MG tablet Indications: S/P foot surgery, right Take 1 tablet by mouth every 6 hours as needed for up to 5 days. 20 tablet 0 07/07/2023 Active peg 3350-sod sulf,fmtc-yoo-rfd 178.7-7.3-0.5 gram recon soln (1 source) Start: 10-20-19 End: 10-21-19 peg 3350-sod sulf,wkdu-xof-xkx 178.7-7.3-0.5 gram recon soln Indications: Positive colorectal cancer screening using Cologuard test Take 1 kit by mouth once daily for 1 dose. Please see instructional sheet given by physicians office. 1 each 10/20/2024 10/21/2024 Active Transdermal Base cream (5 sources) Transdermal Base cream Apply topically Active Completed/Discontinued Medications Medication Drug Class(es) Dates [...] mg Problems Problem Classification Problem Date Documented Da te Episodic/Chronic Acquired foot deformities (4 sources) Toe joint rigid; Translations: [Hallux rigidus, right foot] Onset: 05-19-2023 06-19-2023 Chronic Acquired foot deformities (10 sources) Plantarflexion deformity of foot; Translations: [Other acquired deformities of unspecified foot] Onset: 05-19-2023 06-19-2023 Episodic Complication of device; implant or graft (8 sources) Pain; Translations: [Pain due to internal orthopedic prosthetic devices, implants and grafts, initial encounter] Onset: 07-28-2023 06-19-2023 Episodic Other connective tissue disease (4 sources) Pain in right foot; Translations: [PAIN IN RIGHT FOOT] Onset: 09-04-2022 Episodic Other connective tissue disease (2 sources) Pain in right foot; Translations: [Pain in right foot] 10-19-2024 Episodic Other connective tissue disease (2 sources) Inflammatory neuropathy ; Translations: [Neuralgia and neuritis, unspecified] 10-19-2024 Episodic Other gastrointestinal disorders (2 sources) Stool DNA-based colorectal cancer screening positive; Translations: [Other fecal abnormalities] 10-19-2024 Episodic Other gastrointestinal disorders (1 source) Other fecal abnormalities; Translations: [Other fecal abnormalities] Onset: 10-20-2024 Episodic Other injuries and conditions due to external causes (1 source) Foreign body in left ear; Translations: [Foreign body in left ear, initial encounter] Onset: 10-02-2022 Episodic Other nervous system disorders (2 sources) Compartment syndrome of lower leg 10-01-2022 Chronic Other nervous system disorders (2 sources) Peripheral nerve entrapment syndrome; Translations: [Mononeuropathy, unspecified] 10-19-2024 Chronic Other non-traumatic joint disorders (2 sources) Instability of joint of right ankle; Translations: [Other instability, right ankle] 10-19-2024 Episodic Other skin disorders (2 sources) Foot callus; [...] toe, initial encounter] Onset: 07-28-2023 04-30-2023 Episodic Unclassified (1 source) Positive Cologuard Onset: 10-20-2024 Viral infection (2 sources) Verruca vulgaris; Translations: [Other viral warts] 11-02-2024 Episodic Results Test Name Value Interpretation Reference Range Facil ity Surgical Pathologyon 025 Surgical Pathology Normal [facility] Comment on above: Result Comment: [facility] [address] [place] [address] Surgical Pathology Consultation Patient Name:WILY POLANCO:1980 (Age: 44)Gender:MTaken:11/12/2024Reported:11/18/2024Physician(s):Chris Delaney MD ([phone])Copy To: Rec. #:[id number]: #[id number] Final Pathologic Diagnosis Rectal polypectomy: Hyperplastic polyp. Report Electronically Signed Out ao/11/18/2024quan Carmen MD Interpretation performed at [facility], [address] [facility] [address], License number: [id number]. Clinical History Positive cologuard. Gross Description Received in formalin labeled COLLIN, rectal polyp is 1 miller tissue bit 0.3 cm in greatest dimension. The specimen is filtered and submitted entirely in one cassette. (1,ns,[id number], m1) SW sxw/11/15/2024GR Specimen(s) Received Rectal polyp Fee Codes(s): 1; 87967 No Panel Informationon 11-02 [employer] No Panel Informationon 10-19 Radiology Study observation (narrative) apomio XR Ankle - right 2 [facility] 10-19-2024 Imaging Result: Lateral, AP views are weight-bearing. Bullet hole sinus tarsi with no appreciable talar declination. Approximately 5 degrees of tibiotalar varus. Significant external rotation of the ankle. Orthopedic implants noted across the subtalar joint which appears to be fused. There is also orthopedic implant in the 1st metatarsal consistent with dorsiflexor osteotomy. There is stacking of the metatarsals. No acute fractures or dislocations. [employer] e XR Foot - right 3 [facility] Imaging Result: AP, medial oblique, calcaneal axial views are weight-bearing. Approximately 15-20 degrees of rearfoot varus. Two screws noted across the subtalar joint which seems to be fused. Orthopedic implant across the 1st metatarsal consistent with dorsiflexor ray wedge osteotomy. The talonavicular joint appears to be dislocating medially in the talar head is largely uncovered laterally. Thickening of the 4th metatarsal consistent with chronic lateral column overload. No acute fractures or dislocations noted. [employer] Assisted Documentson 10-21-2023 Assisted Documents [id number] .[id number] Normal [facility] CARDIAC RHYTHM (SCANNED)on [facility] Assisted Documentson 04-03-2023 Assisted Documents [id number]#1.00CD:127 Normal [facility] Vital Signs Date Time Vital Sign Value Performing Clinician Facility 10-20-2024 09:18-0500 Body height 177.8 cm Maximiliano Espinoza TECHNICAL SALES SPECIALIST-FINANCIAL REPORTING ADVISOR Work Phone: [facility] 10-20-2024 09:18-0500 Body mass index (BMI) [Ratio] 36.9 kg/m2 Maximiliano Espinoza TECHNICAL SALES SPECIALIST-FINANCIAL REPORTING ADVISOR Work Phone: [facility] 10-20-2024 09:18-0500 Body weight 116.67 kg Maximiliano Espinoza TECHNICAL SALES SPECIALIST-FINANCIAL REPORTING ADVISOR Work Phone: [facility] 10-20-2024 09:18-0500 Diastolic blood pressure 83 mm[Hg] Maximiliano Espinoza TECHNICAL SALES SPECIALIST-FINANCIAL REPORTING ADVISOR Work Phone: [facility] 10-20-2024 09:18-0500 Heart rate 69 /min Maximiliano Espinoza TECHNICAL SALES SPECIALIST-FINANCIAL REPORTING ADVISOR Work Phone: [facility] 10-20-2024 09:18-0500 Systolic blood pressure 134 mm[Hg] Maximiliano Espinoza TECHNICAL SALES SPECIALIST-FINANCIAL REPORTING ADVISOR Work Phone: [facility] 10-19-2024 09:11-0500 Body height 177.8 cm Adam Saavedra DPM Work Phone: [facility] 10-19-2024 09:11-0500 Body mass index (BMI) [Ratio] 36.59 kg/m2 Adam Rusher DPM Work Phone: [facility] 10-19-2024 09:11-0500 Body weight 115.67 kg Adam Rusher DPM Work Phone: [facility] 07-07-2023 13:01-0400 Diastolic blood pressure 86 mm[Hg] Said Atway DPM Work Phone: [facility] 07-07-2023 13:01-0400 Heart rate 72 /min Said Atway DPM Work Phone: [facility] 07-07-2023 13:01-0400 Respiratory rate 14 /min Said Atway DPM Work Phone: [facility] 07-07-2023 13:01-0400 SaO2% (BldA) [Mass fraction] 96 % Said Atway DPM Work Phone: [facility] 07-07-2023 13:01-0400 Systolic blood pressure 135 mm[Hg] Said Atway DPM Work Phone: [facility] 07-07-2023 12:15-0400 Body temperature 98.01 [degF] Said Atway DPM Work Phone: [facility] 07-07-2023 07:54-0400 Body height 177.8 cm Said Atway DPM Work Phone: [facility] 10-02-2022 15:40-0500 Body temperature 98.6 [degF] Ceasar MURRAY [facility] 10-02-2022 15:40-0500 Diastolic blood pressure 98 mm[Hg] Ceasar MURRAY [facility] 10-02-2022 15:40-0500 Heart rate 69 /min Ceasar MURRAY [facility] 10-02-2022 15:40-0500 Mean blood pressure 111 mm[Hg] Ceasar MURRAY [facility] 10-02-2022 15:40-0500 SaO2% (BldA) [Mass fraction] 97 % Ceasar MURRAY [facility] 10-02-2022 15:40-0500 Systolic blood pressure 136 mm[Hg] Ceasar MURRAY [facility] 10-01-2022 15:29-0500 Blood Pressure Location Ceasar MURRAY [facility] 10-01-2022 15:29-0500 Body temperature 98.42 [degF] Ceasar MURRAY [facility] 10-01-2022 15:29-0500 Diastolic blood pressure 80 mm[Hg] Ceasar MURRAY [facility] 10-01-2022 15:29-0500 Heart rate 90 /min Ceasar MURRAY [facility] 10-01-2022 15:29-0500 Respiratory rate 14 /min Ceasar MURRAY [facility] 10-01-2022 15:29-0500 SaO2% (BldA) [Mass fraction] 94 % Ceasar MURRAY [facility] 10-01-2022 15:29-0500 Systolic blood pressure 117 mm[Hg] Ceasar MURRAY [facility] Encounters Encounter Date Encounter Type Care Provider Facility Start: 11-30-2024 End: 11-30-[address] [facility] Not Available Start: 11-22-2024 End: 11-22-2024 Telephone encounter Marj Us [facility] General Surgery Start: 11-12-2024 End: 11-12-2024 Evaluation and management of inpatient [facility] Start: 11-02-2024 End: 11-02-2024 Bamboo flowsheet [facility] PA Work Phone: [facility] Start: 11-02-2024 End: 11-02-2024 Bamboo flowsheet [facility] Work Phone: [facility] Start: 11-02-2024 End: 11-02-[address] [facility] Not Available Start: 11-02-2024 End: 11-02-2024 Patient encounter procedure Mariola Salazar PA Work Phone: [facility] Comment on above: Common wart (Primary Dx); Pain Start: 10-20-2024 End: 10-20-2024 Office outpatient new 30 minutes Maximiliano Espinoza TECHNICAL SALES SPECIALIST-FINANCIAL REPORTING ADVISOR Work Phone: [facility] General Surgery Comment on above: Positive colorectal cancer screening using Cologuard test (Primary Dx) Start: 10-20-2024 End: 10-20-2024 ambulatory MAXIMILIANONEREIDA ESPINOZA [facility] Start: 10-19-2024 End: 10-19-2024 Bamboo flowsheet Adam Saavedra DPM Work Phone: [facility] Start: 10-19-2024 End: 10-19-2024 Bamboo flowsheet Adam Saavedra DPM Work Phone: [facility] Start: 10-19-2024 End: 10-19-2024 Office outpatient new 30 minutes Adam Saavedra DPM Work Phone: [facility] Comment on above: Varus deformity, not elsewhere classified, right ankle (Primary Dx); Instability of right ankle joint; Right foot pain; Neuritis; Nerve entrapment Start: 10-19-2024 End: 10-19-2024 ambulatory ADAM SAAVEDRA Not Available Start: 10-05-2024 End: 10-06-2024 Telephone encounter Maximiliano Espinoza TECHNICAL SALES SPECIALIST-FINANCIAL REPORTING ADVISOR Work Phone: [facility] General Surgery Start: 07-28-2023 ambulatory [facility]CLUD[facility] Facility:[facility] Start: 07-28-2023 End: 07-28-2023 Postop follow up visit related to original px [facility] Work Phone: [facility] Comment on above: S/P foot surgery, ri ght (Primary Dx); Painful orthopaedic hardware; Foreign body of great toe of right foot with infection, initial encounter Start: 07-07-2023 End: 07-07-2023 ambulatory COUNT INCLUDES [facility] ([facility] Facility:[facility] Start: 07-07-2023 End: 07-07-2023 Subsequent hospital visit by physician Saritha García DPM Work Phone: [facility] Comment on above: Equinus deformity of foot Start: 05-19-2023 ambulatory SELF SELF Facility:[facility] Start: 05-19-2023 End: 06-24-2023 Office outpatient new 45 minutes [facility] Work Phone: [facility] Comment on above: Equinus deformity of foot (Primary Dx); Cavovarus deformity of foot, acquired, right; Callus of foot; Hallux rigidus of right foot; Painful orthopaedic hardware Start: 04-30-2023 End: 04-30-2023 Office outpatient new 30 minutes [facility] Work Phone: [facility] Comment on above: Foreign body of grea t toe of right foot with infection, initial encounter (Primary Dx) Start: 04-30-[address] [facility] ([facility] Facility:[facility] Start: 10-02-2022 End: 10-02-2022 Off-Site Ceasar MURRAY [facility] Start: 10-01-2022 End: 10-01-2022 Off-Site Ceasar MURRAY [facility] Start: 09-04-2022 End: 09-05-2022 ambulatory [facility] Facility: Procedures Date Procedure Procedure Detail Performing Clinician Start: 11-12-2024 Colonoscopy Marj ritter CMA Start: 11-02-2024 CRYOTHERAPY SKIN LESION Mariola PAINTING Work Phone: Start: 10-19-2024 Radiologic examinati on ankle 2 views Adam Saavedra DPM Work Phone: Start: 07-07-2023 CARDIAC RHYTHM Other Ot her Plan of Treatment Date Care Activity Detail Author Start: 11-12-2034 Screening for malign ant neoplasm of colon Colonoscopy [facility] Start: 11-12-2025 Adult BMI Screening Adult BMI Screen ing [facility] Start: 11-12-2025 Tobacco Screening Tobacco Screening [facility] Start: 10-20-2025 Adult BMI Screening Adult BMI Screen ing [facility] Start: 10-20-2025 Tobacco Screening Tobacco Screening [facility] Start: 11-30-2024 End: 11-30-2024 Patient encounter procedure 11/30/2024 8:50 AM EDT Office Visit [facility] [address] [place] [address] Mariola Salazar PA [address] [place] [address] [facility] Start: 11-12-2024 End: 11-12-2024 Admission to same day surgery center 11/12/2024 9:00 AM EST - 11/12/2024 9:30 AM EST Surgery [facility] [address] [place] [address] Lucy Delaney MD [address] [place] [address] COLONOSCOPY DIAGNOSTIC / SCREENING [90748 (CPT )] [facility] Comment on above: COLONOSCOPY DIAGNOST IC / SCREENING [58827 (CPT )] Start: 11-12-2024 End: 11-12-2024 Colonoscopy flx dx w/collj spec when pfrmd COLONOSCOPY DIAGNOSTIC / SCREENING positive cologuard 11/12/2024 9:00 AM [facility] Start: 11-12-2024 Subsequent hospital visit by physician 11/12/2024 9:00 AM EST Hospital Encounter [facility] [address] [place] [address] Lucy Delaney MD [address] [place] [address] [facility] Start: 11-04-2024 End: 11-04-2024 ambulatory 11/04/2024 3:40 PM EST Support Visit [facility] [address] [place] [phone] [facility] Start: 10-20-2024 End: 10-20-2024 Patient encounter procedure 10/20/2024 9:30 AM EST Office Visit [facility] General Surgery [address] [place] [id number] Maximiliano Espinoza, TECHNICAL SALES SPECIALIST-FINANCIAL REPORTING ADVISOR [address] [place] [address] [facility] Surgery Start: 10-19-2024 End: 10-19-2024 Patient encounter procedure 10/19/2024 9:15 AM EST Office Visit [facility] [address] [place] [phone] Adam Saavedra, DPM [address] [place] [address] [facility] Comment on above: Arrived Start: 05-09-2024 Influenza vaccination Influenza Vacc ine [facility] Start: 07-07-2023 End: 07-07-2023 Debridement bone muscle [...] 05-09-2023 Influenza vaccination [facility]UENZA VACC INE (#[facility] Start: 2019 Lipid panel LIPID SCREENING [facility] Start: 1998 DTaP,Tdap and Td Vaccines (1 - Tdap) DTaP,Tdap and Td Vaccines (1 - Tdap) [facility] Start: 1998 Third diphtheria, tetanus and acellular pertussis (DTaP) vaccination TDAP (ADULT) [facility] Start: 1997 Adult BMI Follow Up Plan Adult BMI Follow Up Plan [facility] Start: 1997 Adult BMI Screening Adult BMI Screen ing [facility] Start: 1994 HIV screening HIV SCREENING DISCUSSION [facility] Start: 1991 Depression Screening Depression Scre ening [facility] Start: 1991 Tobacco Screening Tobacco Screening [facility] Start: 02-29-1980 COVID-19 VACCINE (#1) COVID-19 VACCI NE (#1) [facility] Start: 1979 Hepatitis C screening HEPATITI S C VIRUS SCREENING [facility] Start: 1979 Tetanus vaccination TETANUS [facility] Start: 1979 Tobacco Counseling Tobacco Counselin g [facility] End: 10-20-2025 Colonoscopy Colonoscopy GI Routine Positive colorectal cancer screening using Cologuard test 1 Occurrences starting 10/20/2024 until 10/20/2025 [facility] Work Phone: Comment on above: 1 Occurrences starti ng 10/20/2024 until 10/20/2025 Debridement bone mus brayan &/fascia 20 sq cm/< DEBRIDEMENT BONE Equinus deformity of foot Cavovarus deformity of foot, acquired, right Callus of foot Hallux rigidus of right foot Painful orthopaedic hardware [facility] REMOVAL HARDWARE REMOVAL HARDWAR E Equinus deformity of foot Cavovarus deformity of foot, acquired, right Callus of foot Hallux rigidus of right foot Painful orthopaedic hardware [facility] End: 07-07-2023 RF Less than 1 hour [facility] Work Phone: Comment on above: One Time for 1 Occur rences starting 07/07/2023 until 07/07/2023 Immunizations Immunization Date Immunization Notes Care Provider Jules lao 06-08-2019 hepatitis A vaccine, adult dosage Ceasar MURRAY [facility] Payers Date Payer Category Payer Medicaid [id number] 2024 Medicaid [id number] 2023 Unknown ODRC ODRC [id number] 2023-Present [address] [place] [address] [id number] 2023 Unknown [id number] 1979 Unknown [id number] 1979 Unknown [id number] 1979 Unknown [id number] [id number] 1979 Unknown [id number] 1979 Unknown [id number] 1979 Unknown [id number] 1979 Unknown [id number] 1979 Unknown [id number] [id number] 1979 Unknown [id number] 1979 Unknown [id number] 1979 Unknown [id number] 1959 Unknown [id number] Social History Date Type Detail Facility Start: 10-01-2022 Tobacco smoking status Heavy tobacco smoker (finding) [facility] Sex Assigned At Sex [facility] Tobacco smoking stat [facility] Tobacco smoking consumption unknown [facility] Start: 12-23-2014 End: 10-19-2020 History of Social function [facility] Start: 12-23-2014 End: 10-19-2020 Tobacco use panel [facility] Start: 1980 Sex Assigned At Not on file [facility] Start: 07-07-2023 End: 11-12-2024 Tobacco smoking status NHIS Ex-smoker [facility] End: 08-12-2022 History of tobacco use Current smoker [facility] End: 08-12-2022 History of tobacco use Cigarette Smoker [facility] Start: 07-07-2023 End: 10-19-2024 Tobacco use and exposure Former smokeless tobacco user [facility] Start: 06-05-2019 End: 10-20-2024 History of tobacco use User of smokeless tobacco [facility] Start: 07-07-2023 End: 11-15-2024 Alcohol intake Ex-drinker (finding) [facility] Start: 07-07-2023 Education 17 [facility] Start: 07-07-2023 Alcohol Comment etoh abuse [facility] Start: 06-05-2019 Tobacco smoking status COIS Smokes tobacco daily [facility] Start: 06-05-2019 Alcoholic beverage intake Current drinker of alcohol (finding) [facility] Childcare Unknown [facility] Start: 06-05-2019 Alcohol Comment Twisted Teas 2-3 per day [facility] Start: 06-05-2019 Sex Male (finding) [facility] Start: 1980 Sex assigned at Male [facility] Start: 10-18-2024 Gender identity Identifies as male gender (finding) [facility] Start: 10-18-2024 Sexual orientation Heterosexual (finding) [facility] History of tobacco use Chews Tobacco [facility] Start: 11-12-2024 Tobacco use and exposure Smokeless tobacco non-user [facility] Functional Status Date Assessment Result Facility 10-01-2022 Functional Status N/A [facility] Lorenz Clinical Notes 09-04-2022 to 11-22-2024 Telephone Encounter - Marj Us CMA - 11/22/2024 10:15 AM EDTTelephone Encounter - Marj Us CMA - 11/22/2024 10:15 AM EDTTelephone Encounter - Marj Us CMA - 11/22/2024 10:15 AM EDT Note Date & Type Note Facility 11-22-2024 Miscellaneous Notes ----- Message from Dr. Lucy Delaney MD sent at 11/19/2024 8:50 PM EDT ----- Regarding: Path Please let patient know that polyp/s removed during colonoscopy were benign. Repeat colonoscopy in 10 years. Thank you ----- Message ----- From: Interface - Lab Results/Orders In Sent: 11/18/2024 11:14 AM EDT To: Lucy Delaney MD Spoke with patient regarding pathology results. Patient verbally understood with no further questions. Recall put in chart. documented in this encounter [facility] 11-22-2024 Telephone encounter Note ----- Message from Dr. Lucy Delaney MD sent at 11/19/2024 8:50 PM EDT ----- Regarding: Path Please let patient know that polyp/s removed during colonoscopy were benign. Repeat colonoscopy in 10 years. Thank you ----- Message ----- From: Interface - Lab Results/Orders In Sent: 11/18/2024 11:14 AM EDT To: Lucy Delaney MD [facility] 11-22-2024 Telephone encounter Note Spoke with patient regarding pathology results. Patient verbally understood with no further questions. Recall put in chart. [facility] 11-02-2024 History of Present illness Narrative Lesions: Location: right palm of hand Duration: years Quality: painful, bleeding Modifying factors: aggravated by picking Associated symptoms: non-healing, rough, tender Treatments: moisturizer, New Skin New patient, referred by Margie Flores MD All pertinent medical history, medications, and allergies were reviewed. General Exam: alert, oriented to person, place, and time, normal affect, well appearing Unaccompanied A focused exam completed based on patient reported problems, see below: 1. Common wart Right 4th Metacarpophalangeal Region Erythematous verrucous papule(s). Patient and/or family member was counseled regarding warts. Treatment options were discussed including cryotherapy, gina antigen injections, and topical Cantharidin. It was explained that it typically requires multiple treatments before the wart(s) completely resolve. The importance of following up every 3-4 weeks was emphasized. Encouraged OTC wart removers in between appointments to hasten resolution. Patient elected for cryotherapy today, see procedure note. Diagnosis: Verruca Indication: Inflamed Consent: Verbal consent was obtained and risks were discussed, including, but not limited to risks of scarring, darker or canine enforcement officer pigmentary changes, recurrence, incomplete removal and infection. Method: Liquid nitrogen was used to treat the lesion(s) with two 5-10 second freeze-thaw cycles Number of lesions treated: 1 Post-procedure instructions: Instructions were given orally and in writing. The office will be contacted if the lesion fails to resolve despite treatment, or if a side effect develops such as abnormal crusting, scabbing, redness or tenderness Cryotherapy, skin lesion - Right 4th Metacarpophalangeal Region 2. Pain Next Visit: 1 month documented in this encounter [facility] 10-20-2024 History of Present illness Narrative Images from the original note were not included. Chief Complaint: Positive Cologuard History of Present Illness Wily Polanco is a 44 y.o. male who presents to the office for positive Cologuard. He has never had a colonoscopy. He denies any GI problems including diarrhea, constipation, abdominal pain, rectal bleeding. He does not take a blood thinner. There is no family history of colon cancer. Review of Systems Constitutional: Negative for fever and unexpected weight change. HENT: Negative for trouble swallowing. Respiratory: Negative for shortness of breath. Cardiovascular: Negative for chest pain. Gastrointestinal: Negative for nausea, vomiting, abdominal pain, diarrhea, constipation and blood in stool. Genitourinary: Negative for dysuria and difficulty urinating. Musculoskeletal: Negative for gait problem. Skin: Negative for rash and wound. Neurological: Negative for dizziness, weakness and light-headedness. Hematological: Does not bruise/bleed easily. Psychiatric/Behavioral: Negative for confusion. Past Medical History: Diagnosis Date Compartment syndrome (CMS-HCC) 1996 right lower leg Hypertension Tibia/fibula fracture 1996 Right Past Surgical History: Procedure Laterality Date FASCIOTOMY 1996 Right lower leg SKIN GRAFT 1996 TONSILLECTOMY TYMPANOSTOMY TUBE PLACEMENT WISDOM TOOTH EXTRACTION No Known Allergies Current Outpatient Medications: cream base no.31, bulk, (TRANSDERMAL PAIN BASE) cream, Apply 1 application. topically in the morning and at bedtime., Disp: , Rfl: xejwxuue-tppn-XK-calcium &mins (THERAGRAN-M) 9 mg iron-400 mcg tablet, Take 1 tablet by mouth nightly., Disp: , Rfl: MULTIVITAMIN ORAL, Take by mouth daily. Take 1 gummy by mouth daily, Disp: , Rfl: peg 3350-sod sulf,deoa-txv-qrb 178.7-7.3-0.5 gram recon soln, Take 1 kit by mouth once daily for 1 dose. Please see instructional sheet given by physicians office., Disp: 1 each, Rfl: 0 Social History Socioeconomic History Marital status: Single Spouse name: Not on file Number of children: Not on file Years of education: Not on file Highest education level: Not on file Occupational History Not on file Tobacco Use Smoking status: Former Current packs/day: 1.00 Average packs/day: 1 pack/day for 3.0 years (3.0 ttl pk-yrs) Types: Cigarettes Smokeless tobacco: Current Vaping Use Vaping status: Every Day Substances: Nicotine Devices: Disposable Substance and Sexual Activity Alcohol use: Not Currently Comment: Twisted Teas 2-3 per day Drug use: Not Currently Types: Cocaine, Methamphetamines Sexual activity: Not Currently Other Topics Concern Not on file Social History Narrative Not on file Social Drivers of Health Financial Resource Strain: Not on file Food Insecurity: No Food Insecurity (10/20/2024) Hunger Screening Food Insecurity - Worry: Never True Food Insecurity - Inability: Never True Transportation Needs: Not on file Physical Activity: Not on file Stress: Not on file Social Connections: Not on file Interpersonal Safety: Not on file Housing Instability: Not on file Family History Problem Relation Age of Onset Lung cancer Mother Heart disease Father Hyperlipidemia Father Alcohol abuse Father Stroke Father Heart attack Father Pneumonia Father Objective Physical Exam Constitutional: General: He is not in acute distress. Appearance: Normal appearance. He is not ill-appearing. HENT: Head: Normocephalic and atraumatic. Mouth/Throat: Mouth: Mucous membranes are moist. Eyes: Pupils: Pupils are equal, round, and reactive to light. Cardiovascular: Rate and Rhythm: Normal rate. Pulmonary: Effort: Pulmonary effort is normal. No respiratory distress. Abdominal: General: There is no distension. Musculoskeletal: General: Normal range of motion. Skin: General: Skin is warm and dry. Neurological: Mental Status: He is alert and oriented to person, place, and time. Mental status is at baseline. Vital Signs: Blood pressure 134/83, pulse 69, height 177.8 cm (5' 10 ), weight 116.7 kg (257 lb 3.2 oz). Respiratory Source: No data recorded Admission Weight: Weight: 116.7 kg (257 lb 3.2 oz) Labs Lab Results Component Value Date WBC 9.0 06/06/2020 HGB 14.0 06/06/2020 HCT 40.2 06/06/2020 MCV 92 06/06/2020 PLT 380 06/06/2020 Lab Results Component Value Date GLU 92 06/06/2020 CALCIUM 9.1 06/06/2020 K 3.0 (L) 06/06/2020 CO2 27 06/06/2020 CL 102 06/06/2020 BUN 12 06/06/2020 CREATININE 0.99 06/06/2020 No results found for: AMYLASE No results found for: LIPASE Lab Results Component Value Date ALT 66 (H) 06/06/2020 AST 71 (H) 06/06/2020 ALKPHOS 121 06/06/2020 No results found for: INR , PROTIME Assessment Wily Polanco is a 44 y.o.male with positive Cologuard. Plan Colonoscopy with possible biopsy and/or polypectomy. Risks, benefits, and alternatives discussed with patient. Educated on bowel evacuation preparation. Patient verbalizes understanding and wishes to proceed. Evaluation included: Preparing to see the patient (e.g., review of tests) Obtaining and/or reviewing separately obtained history Performing a medically appropriate examination and/or evaluation Counseling and educating the patient/family/caregiver Referring and communicating with other health live in caregiver Positive colorectal cancer screening using Cologuard test [R19.5] STELLA ROSALES [facility] General Surgery [place] This note was created with the assistance of a speech recognition program. While intending to generate a timely document that accurately reflects the content of the visit, no guarantee can be provided that every grammatical or spelling mistake has been or will be identified or corrected. Thank you for your understanding. STELLA Rosales 10/20/24 0945 documented in this encounter [facility] 10-19-2024 History of Present illness Narrative Images from the original note were not included. Subjective Patient ID: Lazarus Polanco is a 44 y.o. 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 Broke leg in '97 broke tibia and fibula, comparment syndrome. Had infection in the bone in right foot. Has already done corrective surgery on the toes, to fix curling of toes, pt states it was straight for a couple years, but pt relates toes curling back. Pt walking on lateral side of foot. Pt still has pain in foot. Was sent to pain management, pt has hx of drug abuse, does not want to be on pain medication. Was given lotion with gabapentin, does help. ). HPI This is a new patient who presents to clinic for 2nd opinion regarding his right foot. Patient has a very challenging history stating that he initially had broke his right leg and subsequently developed compartment syndrome requiring fasciotomies. He has a history of multiple foot surgeries and ankle surgeries of the right lower extremity including what sounds like forefoot and rearfoot procedures. He does have a lot of nerve pain as a result of his multiple surgeries. Additionally he seems to have developed muscle imbalances as he has noticed a progressive cavus deformity of the right foot and ankle. He notes a lot of pain along the lateral foot and ankle especially with walking and standing. Patient has also seen Dr. Cruz who prescribed a brace for the patient but he has yet to pick it up and try it. Review of Systems Constitutional: Positive for activity change. Negative for appetite change. Respiratory: Negative for chest tightness and shortness of breath. Cardiovascular: Negative for chest pain. Musculoskeletal: Positive for arthralgias and gait problem. Skin: Negative for color change and wound. Neurological: Positive for numbness. Negative for weakness. Psychiatric/Behavioral: Negative for agitation and behavioral problems. Hematological: Does not bruise/bleed easily. Endocrine: Negative for cold intolerance and heat intolerance. Allergic/Immunologic: Negative for immunocompromised state. Past medical History History reviewed. No pertinent past medical history. Medications Current Outpatient Medications: Transdermal Base cream, Apply topically, Disp: , Rfl: Allergies Patient has no known allergies. Past Surgical History Past Surgical History: Procedure Laterality Date LEG SURGERY Right pt relates multiple surgeries to leg TONSILLECTOMY Family History No family history on file. Objective Physical Exam Constitutional: Appearance: He is obese. HENT: Head: Normocephalic and atraumatic. Cardiovascular: Pulses: Normal pulses. Pulmonary: Effort: Pulmonary effort is normal. No respiratory distress. Abdominal: Palpations: There is no mass. Musculoskeletal: Cervical back: No rigidity. Comments: Weightbearing examination reveals severe cavovarus deformity on the right lower extremity. Right foot: I can not appreciate any isolated or pinpoint tenderness. He has rigid rearfoot varus of approximately 10 degrees with rigid forefoot varus as well. He has a large callus formation along the plantar lateral foot consistent with varus deformity and lateral column overload. There are large fasciotomy incisions along the medial and lateral calf. Incisions along the digits as well consistent with previous forefoot surgery. Skin: Capillary Refill: Capillary refill takes less than 2 seconds. Findings: No lesion or rash. Neurological: Mental Status: He is alert. Psychiatric: Mood and Affect: Mood normal. Behavior: Behavior normal. XR foot 3+ views right Imaging Result: AP, medial oblique, calcaneal axial views are weight-bearing. Approximately 15-20 degrees of rearfoot varus. Two screws noted across the subtalar joint which seems to be fused. Orthopedic implant across the 1st metatarsal consistent with dorsiflexor ray wedge osteotomy. The talonavicular joint appears to be dislocating medially in the talar head is largely uncovered laterally. Thickening of the 4th metatarsal consistent with chronic lateral column overload. No acute fractures or dislocations noted. XR ankle 2 views right Imaging Result: Lateral, AP views are weight-bearing. Bullet hole sinus tarsi with no appreciable talar declination. Approximately 5 degrees of tibiotalar varus. Significant external rotation of the ankle. Orthopedic implants noted across the subtalar joint which appears to be fused. There is also orthopedic implant in the 1st metatarsal consistent with dorsiflexor osteotomy. There is stacking of the metatarsals. No acute fractures or dislocations. Assessment/Plan ICD-10-CM 1. 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 Right foot pain M79.671 XR foot 3+ views right XR ankle 2 views right 4. Neuritis M79.2 5. Nerve entrapment G58.9 Patient examined and evaluated. Three radiographs of the right foot into of the right ankle taken in office and reviewed with him today. He presents a very challenging case not only from a medical history standpoint given his history of drug abuse but he also presents a very challenging deformity of the lower extremity. I discussed treatment options from both the surgical and conservative approach. Disclosed to him that his level of deformity is beyond my skill level and he may require a supramalleolar osteotomy for realignment of the varus ankle joint as well as some combination of midfoot fusions and osteotomies. Also discussed possibility of pantalar arthrodesis but he would likely function very poorly with this. I recommended following up with Dr. Cruz to discuss further surgical options or alternatively recommended following up with a tertiary care facility for a 3rd opinion. I discussed that another surgery would likely not resolve any of his nerve pain and I would still expect him to have a lot of pain with the foot and ankle although I believe with surgical intervention the alignment could be improved. I do think that the brace is an excellent option and I recommend that he picked it up and try and build up tolerance to be able to wear the brace. Unfortunately I do not see any other area where I could be of assistance at this time and I will follow up with him as needed. This note was created with the assistance of a speech recognition program. While intending to generate a timely document that accurately reflects the content of the visit, no guarantee can be provided that every grammatical or spelling mistake has been or will be identified or corrected. Thank you for your understanding. Adam Saavedra DPM documented in this encounter [facility] 10-05-2024 Miscellaneous Notes Called Lazarus regarding the positive cologuard referral that our office received from Margie Flores NP, left a message on his voicemail to call the office back to schedule an appointment. Lazarus called the office back and we scheduled him an appointment on 10/20/2024. documented in this encounter [facility] 10-05-2024 Telephone encounter Note Called Lazarus regarding the positive cologuard referral that our office received from Margie Flores NP, left a message on his voicemail to call the office back to schedule an appointment. [facility] 10-05-2024 Telephone encounter Note Lazarus called the office back and we scheduled him an appointment on 10/20/2024. 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 Nice at [facility] Orthopaedics. X-ray/ imaging: available on IS ASSESSMENT AND PLAN This is a 42 [...] regular shoe as able. Follow -up: [facility] , in 4-6 weeks for: recheck, due to ongoing drainage. Imaging: Imaging plan --Please have: No new imaging is needed at this time. Surgical Plan: Surgery Plan : No surgery is currently anticipated. and patient is postop Labs: no labs needed at this time Please send routine record requests to [facility] Medical Information Management (MIRIAM) at [phone]. Please ALSO send any Urgent or alert level results to: attention [facility] ORTHOP[facility]ED[facility] via , as well as to [facility] as above. Rehab exercises will beper POST OP instructions per podiatry. Already reviewed these, per patient. Over 10 minutes was spent today in the care of this patient, including visit, exam, review of labs, xrays, history, and other documentation as appropriate. Kay Nice MD Clinical Automotive Software Engineer [facility] Department [place] [address] Office: [phone] documented in this encounter [facility] 07-07-2023 Hospital Discharge instructions Keaton Church DPM - 07/07/2023 11:54 [...] clear fluids Follow Up Appointment - Ortho custodial clinic for dressing changes, wound assessment and [...] evening, weekend, or holiday hours, please call: -[facility] skiver machine operator at [phone]. -[facility] skiver machine operator at [phone] Ask the skiver machine operator to page the on-call doctor for Podiatry, the service that was responsible for your care while you were in the hospital. If you having an emergency, call 911. documented in this encounter [facility] 07-07-2023 Nurse Surgical operation note Patient arrived to [facility] PACU @1140 1159: paged for ASU orders Dr Hannon called for sign out @1200, VO ok to discontinue tele and pulse ox for phase 2. Report called to Brittny IBRAHIM @1213 Patient left PACU via cart @1216 [facility] 07-07-2023 Nurse Note Patient arrived to [facility] PACU @1140 1159: paged for ASU orders Dr Hannon called for sign out @1200, VO ok to discontinue tele and pulse ox for phase 2. Report called to Brittny IBRAHIM @1213 Patient left PACU via cart @1216 Report called to VP [facility]PIRAT[place]A Lynch documented in this encounter [facility] 07-07-2023 Nurse Surgical operation note Report called to VP RESPIRATORYALEXANDRIA Lynch [facility] 05-19-2023 History of Present illness Narrative No chief complaint on file. [...] presents NWB with surgical shoe Seated at [facility]. There were no vitals taken for this [...] of severe infection. documented in this encounter [facility] 05-19-2023 History of Present illness Narrative No chief complaint on file. [...] presents NWB with surgical shoe Seated at [facility]. There were no vitals taken for this [...] of severe infection. documented in this encounter [facility] 05-19-2023 Miscellaneous Notes Addended by: SARITHA GARCÍA on: 06/26/2023 04:14 PM Modules accepted: Orders documented in this encounter [facility] 05-19-2023 Note Addended by: SARITHA GARCÍA on: 06/26/2023 04:14 PM Modules accepted: Orders [facility] 04-30-2023 History of Present illness Narrative The patient telehealth exam . [...] be done immediately. 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, acquired, right Callus of foot Corns and callosities Hallux rigidus of right foot Hallux rigidus Painful orthopaedic hardware [facility] Equinus deformity of foot- Primary 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, acquired, right Callus of foot Corns and callosities Hallux rigidus of right foot Hallux rigidus Painful orthopaedic hardware [facility] S/P foot surgery, right- Primary [facility] Diagnosis S/P foot surgery, right- Primary Painful orthopaedic hardware Foreign body of great toe of right foot with infection, initial encounter [facility] Diagnosis Varus deformity, not elsewhere classified, right ankle- Primary Instability of right ankle joint Right foot pain Pain in soft tissues of limb Neuritis Unspecified neuralgia, neuritis, and radiculitis Nerve entrapment Mononeuritis of unspecified site documented in this encounter [facility] HealthcareEvaluation note* Diagnosis Positive colorectal cancer screening using Cologuard test- Primary [facility] Common wart- Primary Other specified viral warts Pain Generalized pain documented in this encounter [facility] Discharge instructions No data available for this section [facility] InstructionsNot on filedocumented in this encounter [facility] filedocumented in this [facility] filedocumented in [facility] No data available for this section [facility] Assisted Summary Purpose Family History No Family History [...] Records FoundNo Status Records FoundNo Status Records FoundNo Status Records FoundNo Status Records FoundNo Status Records Found INFORMATION SOURCE (unrecogn ized section and content) DATE CREATED AUTHOR 09/07/2022 [facility] DATE CREATED AUTHOR AUTHOR'S ORGANIZ ATION 08/01/2023 [facility] DATE CREATED AUTHOR AUTHOR'S ORGANIZ ATION 10/23/2023 [facility] DATE CREATED AUTHOR AUTHOR'S ORGANIZ ATION 10/22/2024 [facility] DATE CREATED AUTHOR AUTHOR'S ORGANIZ ATION 11/21/2024 [facility] DATE CREATED AUTHOR AUTHOR'S ORGANIZ ATION 12/01/2024 [facility] EPIC Reason for Visit (unrecogniz ed section and content) Reason Comments Foot Swelling Chronic drainage Reason Comments Wound Check Specialty Diagnoses / Procedures Referred By Contac t Referred To Contact Diagnoses Equinus deformity of foot Cavovarus deformity of foot, acquired, right Callus of foot Hallux rigidus of right foot Painful orthopaedic hardware Equinus deformity of foot [M21.6X9] Cavovarus deformity of foot, acquired, right [M21.6X1] Callus of foot [L84] Hallux rigidus of right foot [M20.21] Painful orthopaedic hardware [T84.84XA] Procedures AZ REMOVAL SUPERFICIAL IMPLANT AZ DEBRIDEMENT, SKIN, SUB-Q TISSUE,MUSCLE,BONE REMOVAL HARDWARE DEBRIDEMENT BONE Atway, Saritha Fair DPM [address] [place] [address] [facility] [address] [place] [address] Referral ID Status Reason Start Date Expiration Date Visits Re quested Visits Authorized [id number] 1 1 Reason Comments Post Op Visit Right great toenail removal per podiatry Reason Comments Foot Pain 44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 Broke leg in '97 broke tibia and fibula, comparment syndrome. Had infection in the bone in right foot. Has already done corrective surgery on the toes, to fix curling of toes, pt states it was straight for a couple years, but pt relates toes curling back. Pt walking on lateral side of foot. Pt still has pain in foot. Was sent to pain management, pt has hx of drug abuse, does not want to be on pain medication. Was given lotion with gabapentin, does help. Reason Comments Positive Cologuard Positive Cologuard, first colon, referred by Mena Flores CNP Reason Comments Suspicious Skin Lesion Specialty Diagnoses / Procedures Referred By Rishi bullock Referred To Contact Dermatology Diagnoses callus of hand Procedures office visit Margie Flores MD [address] [place] [address] Phone: tel: fax: Izzy Martini MD [address] [place] [address] Phone: tel: fax: Referral ID Status Reason Start Date Expiration Date Visits Re quested Visits Authorized [id number] Closed 10/25/2024 04/23/2025 1 1 Continuous Active and Recently Administ ered Medications [...] Intra-op/Intra-Proc 1124 (Given - Provid er: Saritha García, DPM - Comment: op site) ceFAZolin (ANCEF) 2 g in dextrose 100 mL premix IVPB 2 g, Intravenous, Administer over 30 Minutes, E BUSINESS MANAGER TO PROCEDURE, 1 dose, Starting on Fri07/07/23 at 1210, Until Fri07/07/23 at 1520, preop ceFAZolin (ANCEF) 2 g in dextrose 100 mL premix IVPB 2 g, Intravenous, Administer over 30 Minutes, E BUSINESS MANAGER TO PROCEDURE, 1 dose, Starting on Fri07/07/23 [...] Care Teams (unrecognized sec tion and content) Senior Tax Accountant Relationship Specialty Start Date End Date Margie Flores MD [address] [place] [address] PCP - General Inspector Repairer 10/19/24 Senior Tax Accountant Relationship Specialty Start Date End Date [facility] [address] [place], [place] PCP - General Family Medicine 10/05/24 Senior Tax Accountant Relationship Specialty Start Date End Date [facility] Other [address] [place] [address] PCP - [facility] 07/04/23 FOR RECORDS PERTAINING TO PATIENTS WHO [...] BE BASED ON THE PRIMARY CLINICAL RECORDS. [facility]e [facility]. provides no warranty or guarantee of the accuracy or completeness of information in this document.
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
== END 2024-12-01 08:06 | disposition home or self-care (01) ==
LOC: PM 08:05
PROVIDERS: Visit Provider Nurse Practitioner
DX: M79.671 Pain in right foot (principal); G90.521 Complex regional pain syndrome I of right lower limb
CPT/HCPCS: G0463